=== PATIENT | male | born 1990 | race African-American/Black ===

== ENCOUNTER 2017-11-17 18:45 | Emergency (ER) | payer OTHER ==
[~2017-11-17] VITALS: Ht 175.3 cm; Wt 79.4 kg
[~2017-11-17 18:45] MED LIST: CEPHALEXIN500 MG ORAL; IBUPROFEN600 MG ORAL
[2017-11-17 18:58] VITALS: BP 152/96
[2017-11-17] MEDS ORDERED: Solu-MEDROL 125mg Inj IVP ONE (19:15)
[2017-11-17] MEDS ORDERED: DiphenhydrAMINE 50mg/ml Inj IVP ONE (19:15)
[2017-11-17 19:30] VITALS: BP 152/96
[2017-11-17 19:31] LABS: EOSINOPHILS % (AUTO) 6.4 % (0.0-3.0); HEMATOCRIT 45.6 % (42.0-52.0); HEMOGLOBIN 15.5 G/DL (14.2-18.0); LYMPHOCYTES % (AUTO) 28.6 % (20.0-45.0); MEAN CORPUSCULAR VOLUME 91 FL (80-99); NEUTROPHILS % (AUTO) 55.1 % (45.0-75.0); PLATELET COUNT 205 K/UL (150-450); RED BLOOD COUNT 5.03 M/UL (4.70-6.10); RED CELL DISTRIBUTION WIDTH 13.7 % (11.6-14.8); WHITE BLOOD COUNT 5.2 K/UL (4.8-10.8)
[2017-11-17 19:39] LABS: ANION GAP 12 mmol/L (5-15); BLOOD UREA NITROGEN 6 mg/dL (7-18); CALCIUM 8.9 MG/DL (8.5-10.1); CARBON DIOXIDE 27 MMOL/L (21-32); CHLORIDE 101 MMOL/L (98-107); CREATININE 0.9 MG/DL (0.55-1.30); POTASSIUM 3.4 MMOL/L (3.5-5.1); SODIUM 140 MMOL/L (136-145)
[2017-11-17 19:41] LABS: ALANINE AMINOTRANSFERASE 158 U/L (12-78); ALBUMIN 4.2 G/DL (3.4-5.0); ALBUMIN/GLOBULIN RATIO 1.2 (1.0-2.7); ALKALINE PHOSPHATASE 110 U/L (46-116); ASPARTATE AMINO TRANSFERASE 188 U/L (15-37); BILIRUBIN,TOTAL 0.8 MG/DL (0.2-1.0)
--- NOTE | 2017-11-18 14:06 | Emergency Room Report ---
History of Present Illness General Chief Complaint: Eye Problems Source: Patient, EMS Present Illness HPI 27-year-old male presents ED for evaluation. Patient brought in by EMS stating that he cannot see. States that he was prescribed antibiotics for a tooth infection. Started the medication this morning and stated after his second dose today he states his vision got very blurry. [place] was on the baseball field when this started. He believes this is an allergic reaction. Denies any itchiness or throat tightness. Denies any shortness of breath. Denies any eye pain. Denies any photophobia. Denies any discharge. No other aggravating relieving factors. Denies any other associated symptoms Allergies: Coded Allergies: No Known Allergies (Unverified , 11/17/17) Patient History Past Medical History: psych hx Past Surgical History: none Pertinent Family History: none Social History: Denies: smoking, alcohol use, drug use Immunizations: UTD Reviewed Nursing Documentation: PMH: Agreed; PSxH: Agreed Nursing Documentation-PMH History Of Psychiatric Problem: Yes - Anxiety, PTSD Hx Seizures: Yes Review of Systems All Other Systems: negative except mentioned in HPI Physical Exam Vital Signs Date Time Temp Pulse Resp B/P (MAP) Pulse Ox O2 Delivery O2 Flow Rate FiO2 11/17/17 18:40 98.4 88 16 152/96 99 Room Air 98.4 Sp02 EP Interpretation: reviewed, normal General Appearance: no apparent distress, alert, GCS 15, non-toxic Head: normocephalic Eyes: bilateral eye normal inspection, bilateral eye PERRL, bilateral eye EOMI , bilateral eye visual acuity - patient refused ENT: normal ENT inspection Neck: full range of motion, supple/symm/no masses Respiratory: chest non-tender, lungs clear, normal breath sounds, speaking full sentences Cardiovascular #1: regular rate, rhythm, no edema Gastrointestinal: normal inspection Rectal: deferred Musculoskeletal: normal inspection Neurologic: alert, oriented x3, responsive, motor strength/tone normal, sensory intact, speech normal Psychiatric: anxious Skin: normal inspection Lymphatic: normal inspection Medical Decision Making Diagnostic Impression: Primary Impression: Eye problem ER Course Hospital Course 27-year-old male presents ED complaining of blurry vision after taking antibiotics. 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 After initial history and physical, I ordered Solu-Medrol, Benadryl, pepcid, IV fluids Labs reviewed - electrolytes okay, no leukocytosis, hemoglobin/hematocrit okay, CRP ok Patient declined performing a visual acuity exam stating that he cannot see. However during my assessment patient is tracking my movement and speaking to me without difficulty. I have suspicion for anxiety or substance abuse. I contacted Dr. Hanna for consultation. In the meanwhile patient pulled out his IV and walks out of ED without difficulty. i. I feel this is a highly complex case requiring extensive working including EKG/Rhythm strip, Xray/CT/US, Blood/urine lab work, repeat exams while in ED, and administration of strong opiates/narcotics for pain control, admission to hospital or close patient follow up. Diagnosis - eye problem patient elopes from ED Last Vital Signs Date Time Temp Pulse Resp B/P (MAP) Pulse Ox O2 Delivery O2 Flow Rate FiO2 11/17/17 19:30 98.4 88 16 152/96 99 Room Air 98.4 Status: unchanged Disposition: ELOPED Condition: Stable Referrals: NOT CHOSEN IPA/,REFERRING (PCP) Subhash Thomas MD Nov 18, 2017 14:06
== END 2017-11-17 21:00 | disposition home or self-care (01) ==
LOC: EDBD 18:45 → EMR 19:30
DX: H53.8 Other visual disturbances (principal); Z86.69 Personal history of other diseases of the nervous system and sense organs; F41.9 Anxiety disorder, unspecified; F43.10 Post-traumatic stress disorder, unspecified
CPT/HCPCS: 36415; 80053; 85025; 85651; 86140; 96361; 96374; 96375; 99284; J1200; J2930; S0028; 96360

== ENCOUNTER 2018-12-20 11:19 | Emergency (ER) | payer OTHER ==
[~2018-12-20] VITALS: Ht 175.3 cm; Wt 80.3 kg
[~2018-12-20 11:19] MED LIST changes: +NKM
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
[2018-12-20 11:21] VITALS: BP 144/96
[2018-12-20] MEDS ORDERED: IBUPROFEN600 MG ORAL (11:31)
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
--- NOTE | 2018-12-20 11:47 | NUR ---
ED Nurse Note: PT LAYING PEACEFULLY IN BED IN NAD. AOX4. PRESCRIPTION AND DISCHARGE PAPERWORK EXPLAINED TO PT. PT VERBALIZES UNDRSTANDING AND ALL QUESTIONS ANSWERED. PRESCRIPTION AND DISCHARGE PAPERWORK GIVEN TO PT AND ID WRISTBAND REMOVED. PT WALKED OUT OF ER WITH STEADY GAIT AND ALL BELONGINGS.
[2018-12-20 11:48] VITALS: BP 138/94
== END 2018-12-20 11:49 | disposition home or self-care (01) ==
LOC: EDBD 11:19 → EMR 11:40
DX: R07.9 Chest pain, unspecified (principal); G40.909 Epilepsy, unspecified, not intractable, without status epilepticus; F12.90 Cannabis use, unspecified, uncomplicated
CPT/HCPCS: 99283